=== PATIENT | male | born 1990 | race Caucasian/White ===

== ENCOUNTER 2016-12-05 15:46 | Emergency (ER) | payer BC ==
[~2016-12-05] VITALS: Ht 185.4 cm; Wt 74.8 kg
[2016-12-05 16:01] VITALS: BP_SYST 135
[2016-12-05 16:45] VITALS: BP_SYST 130
== END 2016-12-05 16:45 | disposition home or self-care (01) ==
LOC: SED 15:46
DX: F41.9 Anxiety disorder, unspecified (principal)
CPT/HCPCS: 99284